=== PATIENT | male | born 1950 | race Caucasian/White ===

== ENCOUNTER 2018-03-13 21:04 | Emergency (ER) | payer MEDICARE ==
[~2018-03-13] VITALS: Ht 170.2 cm; Wt 98.4 kg
--- OUTSIDE RECORDS SUMMARY | ~2018-03-13 | XMS | Clinical Summary ---
Demographics + + + | Address | [address] | | | [place] [address] | + + + | Home Phone | | + + + | Preferred Language | Unknown | + + + | Marital Status | Single | + + + | Hoahaoism Affiliation | Unknown | + + + | Race | Unknown | + + + | Ethnic Group | Unknown | + + + Author + + + | Author | [facility] | | | and [place] | + + + | Organization | [facility] | | | and [place] | + + + | Address | Unknown | + + + | Phone | Unavailable | + + + Support + + +---------+ + | Name | Relationship | Address | Phone | + + +---------+ + | Doris Zacarias | ECON | Unknown | | + + +---------+ + Care Team Providers + +------+ + | Care Catering Attendant Name | Role | Phone | + +------+ + | Juan Jose Bryan | PP | | | MD | | | + +------+ + Allergies + + + + + + | Active Allergy | Reactions | Severity | Noted | Comments | | | | | Date | | + + + + + + | Peanut Oil | | | 01/07/20 | | | | | | 16 | | + + + + + + Current Medications + + +--------+---------+------+------+-------+ | Prescription | Sig. | Disp. | Refills | Star | End | Statu | | | | | | t | Date | s | | | | | | Date | | | + + +--------+---------+------+------+-------+ | cholecalciferol | Take 1,000 Units by | | | | | Activ | | (VITAMIN D-3) 1,000 | mouth Daily. | | | | | e | | units capsule | | | | | | | + + +--------+---------+------+------+-------+ | Multiple Minerals | Take by mouth. | | | | | Activ | | (MULTI-MINERALS PO) | | | | | | e | + + +--------+---------+------+------+-------+ | Calcium | Take by mouth. | | | | | Activ | | Carbonate-Vit D-Min | | | | | | e | | 600-400 MG-UNIT TABS | | | | | | | + + +--------+---------+------+------+-------+ | aspirin 81 mg EC | Take 81 mg by mouth | | | | | Activ | | tablet | Daily. | | | | | e | + + +--------+---------+------+------+-------+ | atorvaSTATin | Take 40 mg by mouth | | | | | Activ | | (LIPITOR) 40 mg | nightly. | | | | | e | | tablet | | | | | | | + + +--------+---------+------+------+-------+ | folic acid 1 mg | Take 1 mg by mouth | | | | | Activ | | tablet | Daily. | | | | | e | + + +--------+---------+------+------+-------+ | lisinopril | Take 5 mg by mouth | | | | | Activ | | (PRINIVIL, ZESTRIL) | Daily. | | | | | e | | 5 mg tablet | | | | | | | + + +--------+---------+------+------+-------+ | | Apply to affected | 30 g | 0 | 03/0 | | Activ | | clotrimazole-betamet | skin three times | | | /20 | | e | | hasone (LOTRISONE) | daily; Rub in until | | | 15 | | | | creamIndications: | cream absorbed; | | | | | | | Rash and nonspecific | Use until affected | | | | | | | skin eruption | skin appears normal. | | | | | | + + +--------+---------+------+------+-------+ | fluticasone | 1 spray by Nasal | 16 g | 0 | 07/0 | | Activ | | (FLONASE) 50 | route 2 times daily. | | | 6/20 | | e | | mcg/nasal spray | | | | 15 | | | + + +--------+---------+------+------+-------+ | sertraline | Take 25 mg by mouth | | | | | Activ | | (ZOLOFT) 50 mg | every morning. | | | | | e | | tablet | | | | | | | + + +--------+---------+------+------+-------+ | OLANZapine | Take 7.5 mg by mouth | | | | | Activ | | (ZYPREXA) 15 MG | nightly. | | | | | e | | tablet | | | | | | | + + +--------+---------+------+------+-------+ | terbinafine | Apply topically as | | | | | Activ | | (LAMISIL) 1% cream | needed. | | | | | e | + + +--------+---------+------+------+-------+ | | Apply to eye 3 | | | | | Activ | | Glycerin-Polysorbate | times daily. | | | | | e | | 80 (REFRESH DRY EYE | | | | | | | | THERAPY OP) | | | | | | | + + +--------+---------+------+------+-------+ | ketoconazole | Apply to affected | 30 g | 0 | 07/1 | | Activ | | (NIZORAL) 2% cream | area twice a day | | | 8/20 | | e | | | | | | 16 | | | + + +--------+---------+------+------+-------+ | hydrocortisone | Apply thin film to | 30 g | 0 | 07/2 | | Activ | | 2.5% cream | affected area(s) two | | | 2/20 | | e | | | to four times daily | | | 16 | | | | | as needed | | | | | | + + +--------+---------+------+------+-------+ Active Problems No known active problems Social History + +-------+ +--------+ + | Tobacco Use | Types | Packs/Day | Years | Date | | | | | Used | | + +-------+ +--------+ + | Former Smoker | | | | Quit: 10/15/1969 | + +-------+ +--------+ + + +---+---+---+ | Smokeless Tobacco: | | | | | Never Used | | | | + +---+---+---+ + + +---------+ + | Alcohol Use | Drinks/We | oz/Week | Comments | | | ek | | | + + +---------+ + | No | 0 | 0.0 | | | | Standard | | | | | drinks or | | | | | | | | | | equivalen | | | | | t | | | + + +---------+ + + + + | Sex Assigned at | Date Recorded | | | | + + + | Not on file | | + + + Last Filed Vital Signs + + + + | Vital Sign | Reading | Time Taken | + + + + | Blood Pressure | 125/70 | 03/11/2016947 PDT | + + + + | Pulse | 63 | 03/11/2016947 PDT | + + + + | Temperature | 36.7 C (98.1 F) | 03/11/2016947 PDT | + + + + | Respiratory Rate | 18 | 03/11/2016947 PDT | + + + + | Oxygen Saturation | 95% | 03/11/2016947 PDT | + + + + | Inhaled Oxygen | - | - | | Concentration | | | + + + + | Weight | 96.6 kg (213 lb) | 03/11/2016947 PDT | + + + + | Height | 170.2 cm (5' 7") | 03/11/2016947 PDT | + + + + | Body Mass Index | 33.36 | 03/11/2016947 PDT | + + + + Plan of Treatment + + + + + | Health Maintenance | Due Date | Last Done | Comments | + + + + + | Hepatitis C | | | | | Screening | 2 | | | + + + + + | Vaccine: | | | | | Dtap/Tdap/Td (1 - | 1 | | | | Tdap) | | | | + + + + + | Colorectal Cancer | | | | | Screening | 2 | | | | (Colonoscopy) | | | | + + + + + | Vaccine: Zoster (1 | | | | | of 2) | 2 | | | + + + + + | Vaccine: | | | | | Pneumococcal 65+ | 7 | | | | Low/Medium Risk (1 | | | | | of 2 - PCV13) | | | | + + + + + | Vaccine: Influenza | | | | | (#1) | 8 | | | + + + + + Results Not on filefrom Last 3 Months Insurance + +--------+ +--------+ +---------+ | Payer | Benefi | Subscriber | Type | Phone | Address | | | t Plan | ID | | | | | | / | | | | | | | Group | | | | | + +--------+ +--------+ +---------+ | MEDICARE | MEDICA | [id number] | Medica | [phone] | | | | RE | | re | [phone] | | | | PART A | | | | | | | AND B | | | | | + +--------+ +--------+ +---------+ | | TRICAR | [id number] | Indemn | [phone] | | | | E FOR | | ity | [phone] | | | | LIFE | | | | | + +--------+ +--------+ +---------+ | [employer]MIN | V[employer] | [id number] | Indemn | | | | | NS | | ity | | | | | CHOICE | | | | | + +--------+ +--------+ +---------+ + +--------+ +--------+ + + | Guarantor Name | Accoun | Relation to | Date | Phone | Billing Address | | | t Type | Patient | of | | | | | | | | | | + +--------+ +--------+ + + | STACEY GEE | Person | Self [birth year] Home: | [address] | | | al/Fam | | 1950 | [phone] [address] [place] | | | [address] | | [phone] | [place] [phone] | + +--------+ +--------+ + +
--- OUTSIDE RECORDS SUMMARY | ~2018-03-13 | XMS | Clinical Summary ---
Demographics + + + | Address | [address] | | | [place] [address] | + + + | Home Phone | | + + + | Preferred Language | Unknown | + + + | Marital Status | Single | + + + | Sikhism Affiliation | Unknown | + + + | Race | Unknown | + + + | Ethnic Group | Unknown | + + + Author + + + | Author | [facility] | | | and [place] | + + + | Organization | [facility] | | | and [...] Team Providers + +------+ + | Care District Home Economics Agent Name | Role | Phone | + [...] +--------+ +---------+ | MEDICARE | MEDICA | [id number] | Medica | [phone] | | | | RE | | re | [phone] | | | | PART A | | | | | | | AND B | | | | | + +--------+ +--------+ +---------+ | | TRICAR | [id number] | Indemn | [phone] | | | | E FOR | | ity | [phone] | | | | LIFE | | | | | + +--------+ +--------+ +---------+ | [employer]MIN | V[employer]A | [id number] | Indemn | | | | | [...] | | al/Fam | | 1950 | [phone] | [address] [place] | | | [address] | | | [phone] | [place] [address] | + +--------+ +--------+ + +
[~2018-03-13 21:04] MED LIST: ACETAMINOPHEN325 M1 PO; ASPIRIN EC81 MG PO; CALCIUM + VITA1 EACH PO; FENOFIBRATE145 MG PO; FOLIC ACID1 MG PO; HYDROCHLOROTH12.5 MG PO; LUBRICATING PL1 EACH OP; OLANZAPINE7.5 MG PO; OMEPRAZOLE20 MG PO; ONE DAILY1 EAC1 PO; PERCOCET 5-3251 EACH PO; SF56 GM DT; VITAMIN D10000 UNIT PO; ZESTRIL5 MG PO; ZOCOR40 MG PO
== END 2018-03-14 08:10 ==
LOC: ED 21:04
DX: F29 Unspecified psychosis not due to a substance or known physiological condition (principal); F32.9 Major depressive disorder, single episode, unspecified; Z87.891 Personal history of nicotine dependence; Z79.899 Other long term (current) drug therapy; Z79.82 Long term (current) use of aspirin
CPT/HCPCS: 70450; 80053; 80176; 81001; 84443; 85025; 99285; G0480